=== PATIENT | female | born 1950 | race Caucasian/White ===

== ENCOUNTER → 2022-08-22 08:27 | Outpatient (BNVA) | payer MEDICARE, OTHER, SELFPAY | PROVIDERS: Family Provider Family Medicine; PCP Family Medicine; Referring Provider Family Medicine; Visit Provider Specialist | DX: G25.0 Essential tremor (principal); F17.210 Nicotine dependence, cigarettes, uncomplicated | CPT/HCPCS: 99204 ==

== ENCOUNTER → 2023-02-06 10:54 | Outpatient (BNVA) | payer MEDICARE, OTHER, SELFPAY | PROVIDERS: Family Provider Family Medicine; PCP Family Medicine; Visit Provider Specialist | DX: G25.0 Essential tremor (principal); F17.200 Nicotine dependence, unspecified, uncomplicated; Z53.21 Procedure and treatment not carried out due to patient leaving prior to being seen by health care provider | CPT/HCPCS: G0463 ==

== ENCOUNTER → 2023-08-15 09:45 | Outpatient (BNVA) | payer MEDICARE, OTHER, SELFPAY | PROVIDERS: Family Provider Family Medicine; PCP Family Medicine; Referring Provider Family Medicine; Visit Provider Internal Medicine Cardiovascular Disease | DX: R07.9 Chest pain, unspecified (principal); F17.200 Nicotine dependence, unspecified, uncomplicated; I44.4 Left anterior fascicular block; I10 Essential (primary) hypertension; G25.0 Essential tremor | CPT/HCPCS: 93005; 99204 ==

== ENCOUNTER 2023-08-30 10:32 | Outpatient (CLI) | payer MEDICARE, OTHER, SELFPAY ==
--- NOTE | 2023-08-30 11:15 | USCV_ITS ---
Karen Conley Age: 73 Gender: F : 1950 Exam Date: 08/30/2023 10:43 Ordering Phys: Sonya Lopez MD ([email or web address]) Technologist: Erika Schilling Exam Location: [facility] [place] Indication: HTN AND CHEST PAIN BP: 140 / 70 HR: 75 Rhythm: Sinus Technical Quality: Adequate MEASUREMENTS (Male / Female) Normal Values 2D ECHO LV Diastolic Diameter PLAX 4.0 cm 4.2 - 5.9 / 3.9 - 5.3 cm LV Systolic Diameter PLAX 3.0 cm LV Chamber Size 3.0 cm IVS Diastolic Thickness 1.4 cm 0.6 - 1.0 / 0.6 - 0.9 cm IVS Systolic Thickness 1.5 cm LVPW Diastolic Thickness 1.3 cm 0.6 - 1.0 / 0.6 - 0.9 cm LVPW Systolic Thickness 1.2 cm RV Chamber Size 2.6 cm LVOT Diameter 2.1 cm LV Ejection Fraction 2D Teich 51.6 % LV Ejection Fraction MOD 2C 72.1 % LV Ejection Fraction 2C AL 74.8 % LA Diameter 3.7 cm LA Width 3.3 cm LA Height 4.0 cm RA Width 2.5 cm RA Height 4.5 cm Aorta at Sinotubular Diameter 3.2 cm IVC Diameter 1.3 cm M-MODE Aortic Annulus Diameter 3.3 cm LA Ao Ratio MM 1.2 MV E Point Septal Separation 0.1 cm DOPPLER AV Peak Velocity 236.0 cm/s LVOT Peak Velocity 176.7 cm/s AV Area Cont Eq vti 2.5 cm squared AV Area Cont Eq pk 2.5 cm squared MV Area PHT 2.8 cm squared Mitral E to A Ratio 1.0 MV E' Velocity 47.6 cm/s Mitral E to MV E' Ratio 12.8 Mitral E to LV E' Lateral Ratio 12.1 Mitral E to LV E' Septal Ratio 13.6 TR Peak Velocity 220.1 cm/s TR Peak Gradient 19.4 mmHg TR Mean Velocity 175.1 cm/s TR Mean Gradient 13.4 mmHg TR Velocity Time Integral 67.5 cm TV Peak E Velocity 61.0 cm/s Right Atrial Pressure 3.0 mmHg Pulmonary Artery Systolic Pressu 22.4 mmHg RV Acceleration Time 0.4 s RV Ejection Time 0.1 s RV AcT/ET 3.3 FINDINGS Left Ventricle Normal left ventricular size, systolic function and wall thickness, with no regional wall motion abnormalities. Left ventricular ejection fraction is estimated at 65 %. Normal diastolic function. Right Ventricle Normal right ventricular size and systolic function. Right ventricular systolic pressure 22.4 mmHg. Right Atrium Normal right atrial size. Left Atrium Normal left atrial size. Mitral Valve Structurally normal mitral valve. No mitral valve stenosis. No mitral valve regurgitation. Aortic Valve Structurally normal trileaflet aortic valve. No aortic valve stenosis. Trace to mild aortic valve regurgitation. Tricuspid Valve Structurally normal tricuspid valve. No tricuspid valve stenosis. Trace tricuspid valve regurgitation. Pulmonic Valve Structurally normal pulmonic valve. No pulmonary valve stenosis. No pulmonary valve regurgitation. Pericardium No pericardial effusion. Aorta Normal size aortic root and proximal ascending aorta. IVC Normal IVC dimension with >50% respiratory change of the inferior vena cava. CONCLUSIONS 1. Normal left ventricular size, systolic function and wall thickness, with no regional wall motion abnormalities. Left ventricular ejection fraction is estimated at 65 %. Normal diastolic function. 2. Trace to mild aortic valve regurgitation. 3. No prior similar studies to compare. Sonya Lopez MD (Electronically Signed) Final Date: 30 August 2023 17:40 S
== END 2023-08-30 10:33 | disposition home or self-care (01) ==
LOC: RAD 10:32
PROVIDERS: Family Provider Family Medicine; PCP Family Medicine; Visit Provider Internal Medicine Cardiovascular Disease
DX: R07.9 Chest pain, unspecified (principal); I10 Essential (primary) hypertension; I35.1 Nonrheumatic aortic (valve) insufficiency
CPT/HCPCS: 93306

== ENCOUNTER 2024-02-07 12:41 | Emergency (ER) | payer MEDICARE, OTHER, SELFPAY ==
[2024-02-07] VITALS (37 sets, daily range): BP systolic 129–191; BP diastolic 73–126; PULSE 63–103; RESP 14–31; TEMP 36.7; O2SAT 87–99
--- NOTE | 2024-02-07 13:26 | ECG_ITS ---
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 Measurements Intervals [place] Rate: 78 P: 0 NM: 0 QRS: -30 QRSD: 130 T: 79 QT: 415 QTc: 473 Interpretive Statements Sinus rhythm with frequent supraventricular ectopics MINIMAL VOLTAGE CRITERIA FOR LVH, CONSIDER NORMAL VARIANT [MEETS CRITERIA IN ONE OF: R(aVL), S(V1), R(V5), R(V5/V6)+S(V1)] SEPTAL MYOCARDIAL INFARCTION , PROBABLY OLD [40+ ms Q WAVE IN V1/V2] LATERAL MYOCARDIAL INFARCTION , OF INDETERMINATE AGE [40+ ms Q WAVE AND/OR ST/T ABNORMALITY IN I/aVL/V5/V6] Compared to ECG 08/15/2023 09:50:10 Left anterior fascicular block no longer present Myocardial infarct finding still present Electronically Signed On 02-07-2024 18:34:02 CDT by Ivon Fong M.D. [id number]
--- NOTE | 2024-02-07 13:26 | XRR_ITS ---
PROCEDURE INFORMATION: Exam: XR Chest Exam date and time: 02/07/2024 1:30 PM Age: 74 years old Clinical indication: Dyspnea TECHNIQUE: Imaging protocol: Radiologic exam of the chest. Views: 1 view. COMPARISON: No relevant prior studies available. FINDINGS: Lungs: Unremarkable. No consolidation or mass. Pleural spaces: Unremarkable. No pleural effusion. No pneumothorax. Heart/Mediastinum: Unremarkable. No cardiomegaly. Bones/joints: Unremarkable. XR/XR chest 1V portable [id number] IMPRESSION: No acute findings.
--- NOTE | 2024-02-07 13:29 | ED_ITS ---
HPI - SOB/Dyspnea 2 General: Chief Complaint: Shortness of Breath/Dyspnea Stated Complaint: irregular hb, devika sent over Time Seen by Provider: 02/07/24 13:26 History of Present Illness: HPI Narrative: 74-year-old female presents emergency de partment from her primary care doctor's office stating that she has been having some intermittent shortness of breath worsening over the previous 6 days. She states she does have a history of atrial fibrillation and states that she also has a history of COPD and states she has decreased her cigarette usage and today is only smoked 4 cigarettes. She states she does have a nonproductive cough. She states she has not had any chest pain. She denies dizziness or lightheaded fever chills or night sweats. She states she feels like she is more short of breath with exertion. Review of Systems 2 General: Reports: 10 or more systems reviewed and unremarkable except in HPI and below Resp: Reports: dyspnea, non-productive cough and wheezing PFSH ED 2 PFSH: Medical History HTN (hypertension) Surgical History H/O: hysterectomy Family History Mother Cancer Father Dementia Diabetes Stroke Social History Smoking and tobacco/nicotine status: current every day tobacco/nicotine user cigarettes Packs smoked per day: 1 Alcohol intake: never Substance/Drug Use: never Physical Exam 2 Narrative: EXAM NARRATIVE: Constitutional: the patient appears well nourished and with normal development. Vital signs reviewed as documented. HENMT: Normocephalic, atraumatic. External ears normal appearance without drainage. Nose without drainage, normal appearance. Mucus membranes moist. Neck is supple, No jugular venous distension, trachea is midline, no appreciable carotid bruits. No lymphadenopathy. No meningeal signs. Flexion, extension and lateral rotation is without pain. Eyes: Pupils are equal, round, reactive to light and accommodation. No scleral icterus. Extra-ocular movement are intact. Thorax is symmetrical and with equal rise and fall with respirations. Resp: Prolonged expiratory phase, faint scattered expiratory wheezes noted. Decreased bilaterally in the bases most likely secondary to body habitus. She does not appear to be having increased work of breathing. Cardio: Irregularly irregular consistent with findings of atrial fibrillation which appears to be chronic for this patient.. Positive S1, S2. No appreciable murmurs, rubs or gallops. GI: Abdominal exam reveals normal bowel sounds to all quadrants. No organomegaly. No obvious palpable masses noted. No hepatomegally appreciated. Soft, non-tender to palpation. Extremity: Extremities are non-edematous and both femoral and pedal pulses are 2+ and equal bilaterally. Moves all extremities well, sensation in all extremities. Neuro: Alert and oriented x4, person, place, time and situation. Cranial nerves II through XII are grossly intact, there is no focal neurological deficits that I can appreciate at present. Sensation intact to all extremities. 2-point discrimination intact. Light touch intact to all extremities. Motor strength in the upper and lower extremities are equal and bilateral 5/5. Psych: Cooperative, calm, normal thought process, appropriate judgment. Skin: No lesions, rashes. No gross abnormalities noted. Back: Symmetrical, no obvious deformity, No CVA tenderness Course 2 Vital Signs: Vital signs: Vital Signs Temperature 98.1 F 02/07/24 12:50 Pulse Rate 73 02/07/24 16:30 Respiratory Rate 22 H 02/07/24 16:30 Blood Pressure 149/88 02/07/24 16:30 Pulse Oximetry 96 02/07/24 16:30 Oxygen Delivery Me thod Room Air 02/07/24 16:10 Oxygen Flow Rate 2 02/07/24 15:15 MDM - SOB/Dyspnea Medical Decision Making Physical exam completed and documented, I will obtain a CBC, CMP, cardiac enzymes as well as serial twelve-lead EKGs and a chest x-ray to evaluate. I suspect most likely this is a COPD exacerbation as she continues to use tobacco products. Differential diagnosis includes viral pneumonia, bacterial pneumonia, COPD exacerbation, CHF, worsening pulmonary function, uncontrolled atrial fibrillation. Medical Records I reviewed the patient's medical records. Lab Data I reviewed the patient's lab results. 02/07/24 13:47 02/07/24 13:47 Labs/Radiology: Radiology Impressions Chest X-Ray 02/07/24 13:26 IMPRESSION: No acute findings. Laboratory Results WBC 10.14 10^3/uL (3.29-11.43) 02/07/24 13:47 RBC 4.48 10^6/uL (3.85-5.65) 02/07/24 13:47 Hgb 13.80 g/dL (11.27-16.99) 02/07/24 13:47 Hct 40.1 % (36-47) 02/07/24 13:47 MCV 89.5 fl (85-98) 02/07/24 13:47 MCH 30.8 pg (27-33) 02/07/24 13:47 MCHC 34.4 g/dL (30-55) 02/07/24 13:47 RDW 13.1 % (12.1-15.1) 02/07/24 13:47 Plt Count 313 10^3/cmm (157-399) 02/07/24 13:47 MPV 8.9 fL (7.4-10.4) 02/07/24 13:47 Neut % (Auto) 56.2 % 02/07/24 13:47 Lymph % (Auto) 31.2 % 02/07/24 13:47 [place] % (Auto) 9.1 % 02/07/24 13:47 Eos % (Auto) 2.3 % 02/07/24 13:47 Baso % (Auto) 0.9 % 02/07/24 13:47 Neut # (Auto) 5.71 10^3/uL (1.8-7.7) 02/07/24 13:47 Lymph # (Auto) 3.2 10^3/uL (0.8-4.8) 02/07/24 13:47 [place] # (Auto) 0.9 10^3/uL (0.2-0.9) 02/07/24 13:47 Eos # (Auto) 0.2 10^3/uL (0.0-0.8) 02/07/24 13:47 Baso # (Auto) 0.1 10^3/uL (0.0-0.1) 02/07/24 13:47 Nucleated RBC % (auto) 0 % 02/07/24 13:47 Nucleated RBCs # 0.0 /100WBC 02/07/24 13:47 PT 12.70 SECONDS (12.1-14.9) 02/07/24 13:47 INR 0.93 (0.8-1.2) 02/07/24 13:47 Sodium 134 mmol/L (136-145) L 02/07/24 13:47 Potassium 2.6 mmol/L (3.5-5.1) L* 02/07/24 13:47 Chloride 92 mmol/L (98-107) L 02/07/24 13:47 Carbon Dioxide 29 mmol/L (22-29) 02/07/24 13:47 Anion Gap 15.6 (5-19) 02/07/24 13:47 BUN 24 mg/dL (8-23) H 02/07/24 13:47 Creatinine 0.9 mg/dL (0.5-0.9) 02/07/24 13:47 GFR Calculation Not Reportable 02/07/24 13:47 Glucose 111 mg/dL (65-115) 02/07/24 13:47 Calculated Osmolality 283 mOsm/kg (285-295) L 02/07/24 13:47 Calcium 8.7 mg/dL (8.5-10.5) 02/07/24 13:47 Total Bilirubin 0.3 mg/dL (0.15-1.2) 02/07/24 13:47 AST 26 U/L (0-32) 02/07/24 13:47 ALT 26 U/L (0-33) 02/07/24 13:47 Alkaline Phosphatase 53 U/L (35-105) 02/07/24 13:47 Troponin T Baseline 33 ng/L (0-10) H 02/07/24 13:47 Troponin T 120 Minute 25.90 ng/L (0-10) H 02/07/24 15:59 Delta Troponin T -7.10 ABS# (0-10) L 02/07/24 15:59 NT-Pro-B Natriuret Pep 777 pg/mL (0-450) H 02/07/24 13:47 Total Protein 7.0 g/dL (6.6-8.7) 02/07/24 13:47 Albumin 4.0 g/dL (3.5-5.2) 02/07/24 13:47 Globulin 3.0 g/dL (1.3-4.6) 02/07/24 13:47 Urine Color Yellow (Yellow) 02/07/24 15:45 Urine Appearance Hazy (CLEAR) A 02/07/24 15:45 Urine pH 5 (5-7) 02/07/24 15:45 Ur Specific [place] 1.010 (1.005-1.030) 02/07/24 15:45 Urine Protein Neg (Negative) 02/07/24 15:45 Urine Glucose (UA) Norm (Normal) 02/07/24 15:45 Urine Ketones Negative (Negative) 02/07/24 15:45 Urine Blood Neg (Negative) 02/07/24 15:45 Urine Nitrate Negative (Negative) 02/07/24 15:45 Urine Bilirubin Neg (Negative) 02/07/24 15:45 Urine Urobilinogen Norm mg/dL (Negative) 02/07/24 15:45 Ur Leukocyte Esterase Negative (Negative) 02/07/24 15:45 Urine RBC 0-4 /hpf (0-2) H 02/07/24 15:45 Urine WBC 0-4 /hpf (0-5) H 02/07/24 15:45 Ur Squamous Epith Cells 10-15 /hpf (0-5) H 02/07/24 15:45 Amorphous Sediment Not Reportable 02/07/24 15:45 Urine Bacteria Trace /hpf (NONE) 02/07/24 15:45 Hyaline Casts 5-10 /lpf H 02/07/24 15:45 Urine Mucus Trace /hpf 02/07/24 15:45 All radiology interpretation(s) finalized by discharge Discharge Plan Discharge Patient Disposition: Home Clinical Impression: Acute hypokalemia Atrial fibrillation Qualifiers: Atrial fibrillation type: longstanding persistent Qualified Code(s): I48.11 - Longstanding persistent atrial fibrillation Hypertension Qualifiers: Hypertension type: unspecified Qualified Code(s): I10 - Essential (primary) hypertension Condition: Stable Prescriptions: New potassium chloride 20 mEq tablet extended release 20 meq PO DAILY Qty: 7 0RF No Action hydrochlorothiazide 25 mg tablet 25 mg PO QAM clonidine HCl 0.3 mg tablet 0.3 mg PO BID furosemide [Lasix] 20 mg tablet 20 mg PO QAM losartan 100 mg tablet 100 mg PO QAM primidone 50 mg tablet 50 mg PO BID 90 Days Qty: 180 3RF diltiazem HCl [DILT-XR] 120 mg capsule,ext.rel 24h degradable 120 mg PO QAM multivitamin Tablet 1 tab PO DAILY Aspir-81 81 mg Tablet,Delayed Release (Dr/Ec) 162 mg PO BID garlic 500 mg Capsule 1,000 mg PO BID apple cider vinegar 500 mg Tablet 500 mg PO BID turmeric 400 mg Capsule 400 mg PO BID Discharge Orders: Discharge ED (Routine); Ordered 02/07/24 Ordered By: Wes Frias Referrals: Ricky Tijerina, DO [Primary Care Provider] - Discharge Diet: Usual diet Discharge Activity: Resume usual activity Patient Instructions: Opioid Safety, Pain Management Activity Restrictions/Additional Instructions: Activity Restrictions/Additional Instructions: Thank you for choosing [facility] for your healthcare needs today. Please realize that you were seen in the Emergency Department and that we are providing you with an emergency medical screening exam and this may not be a complete and all inclusive of all the testing and or medical work-up that you may need to determine your ailment or severity of your illness. It is very important that you follow-up as instructed with your Primary care provider or Specialist for additional evaluation and to discuss your medical treatment plan. Coding Level of Care Code ED Veterinary Livestock Inspector for Evan Ruiz
[2024-02-07] MEDS: ipratropium-albuterol 3 mL Neb INHALATION (13:53)
[2024-02-07 13:54] LABS: Basophils # 0.1 10^3/uL (0.0-0.1); Basophils % 0.9 %; Eosinophils # 0.2 10^3/uL (0.0-0.8); Eosinophils % 2.3 %; Hematocrit 40.1 % (36-47); Lymphocytes # 3.2 10^3/uL (0.8-4.8); Lymphocytes % 31.2 %; Mean Corpuscular HGB Conc 34.4 g/dL (30-55); Mean Corpuscular Hemoglobin 30.8 pg (27-33); Mean Corpuscular Volume 89.5 fl (85-98); Mean Platelet Volume 8.9 fL (7.4-10.4); Monocytes # 0.9 10^3/uL (0.2-0.9); Monocytes % 9.1 %; Neutrophils # 5.71 10^3/uL (1.8-7.7); Neutrophils % 56.2 %; Nucleated Red Blood Cells % 0 %; Platelet Count 313 10^3/cmm (157-399); Red Blood Count 4.48 10^6/uL (3.85-5.65); Red Cell Distribution Width 13.1 % (12.1-15.1); White Blood Count 10.14 10^3/uL (3.29-11.43)
[2024-02-07] MEDS: methylPREDNISolone sod succ 125 mg/2 mL INJ 60 MG IVP (13:57)
[2024-02-07 14:08] LABS: INR 0.93 (0.8-1.2)
[2024-02-07 14:13] LABS: Troponin(5th) Baseline 33 ng/L (0-10)
[2024-02-07 14:21] LABS: Alanine Aminotransferase 26 U/L (0-33); Alkaline Phosphatase 53 U/L (35-105); Anion Gap 15.6 (5-19); Aspartate Amino Transferase 26 U/L (0-32); Blood Urea Nitrogen 24 mg/dL (8-23); Calcium 8.7 mg/dL (8.5-10.5); Carbon Dioxide 29 mmol/L (22-29); Chloride 92 mmol/L (98-107); Creatinine Clr Calc Pharmacy 52.6851; Glucose 111 mg/dL (65-115); NT Pro B Type Natriuretic Pept 777 pg/mL (0-450); Osmolality Calculated 283 mOsm/kg (285-295); Sodium 134 mmol/L (136-145); Total Bilirubin 0.3 mg/dL (0.15-1.2)
[2024-02-07 14:27] LABS: Potassium 2.6 mmol/L (3.5-5.1)
[2024-02-07] MEDS: potassium chloride ER 20 mEq Tablet 40 MEQ PO (14:50)
[2024-02-07] MEDS: dilTIAZem 5 mg/mL SDV 5 mL 10 MG IVP (15:28)
--- NOTE | 2024-02-07 15:34 | ECG_ITS ---
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 Measurements Intervals [place] Rate: 86 P: 0 ND: 0 QRS: -22 QRSD: 131 T: 62 QT: 412 QTc: 495 Interpretive Statements ATRIAL FIBRILLATION WITH ABERRANT CONDUCTION OR VENTRICULAR PREMATURE COMPLEXES INTRAVENTRICULAR CONDUCTION DELAY [130+ ms QRS DURATION] MODERATE VOLTAGE CRITERIA FOR LVH, CONSIDER NORMAL VARIANT [MEETS CRITERIA IN ONE OF: R(aVL), S(V1), R(V5), R(V5/V6)+S(V1)] POSSIBLE SEPTAL MYOCARDIAL INFARCTION , PROBABLY OLD [30 ms Q WAVE IN V1/V2] Compared to ECG 02/07/2024 12:49:38 Ventricular premature complex(es) now present Aberrant conduction of supraventricular beat(s) now present Intraventricular conduction delay now present Myocardial infarct finding still present Electronically Signed On 02-07-2024 18:56:31 CDT by Ivon Fong M.D. [email or web address]
[2024-02-07 16:07] LABS: Add Urine Microscopic? YES; Bilirubin Urine Neg (Negative); Blood Urine Neg (Negative); Glucose Urine UA Norm (Normal); Ketones Urine Negative (Negative); Leukocyte Esterase Urine Negative (Negative); Nitrate Urine Negative (Negative); Protein Urine Neg (Negative); Urine Appearance Hazy (CLEAR); Urine Color Yellow (Yellow); Urobilinogen Urine Norm (Negative); pH Urine 5 (5-7)
[2024-02-07 16:12] LABS: Bacteria Urine TRACE /hpf; RBC Urine 0-4 /hpf (0-2); WBC Urine 0-4 /hpf (0-5)
[2024-02-07 16:13] LABS: Add Urine Culture? No; Mucus Urine TRACE /hpf
== END 2024-02-07 17:00 | disposition home or self-care (01) ==
PROVIDERS: Emergency Provider Internal Medicine; PCP Family Medicine
DX: E87.6 Hypokalemia (principal); I48.11 Longstanding persistent atrial fibrillation; I10 Essential (primary) hypertension; Z79.82 Long term (current) use of aspirin; F17.210 Nicotine dependence, cigarettes, uncomplicated
CPT/HCPCS: 36415; 71045; 80053; 81001; 83880; 84484; 85025; 85610; 93005; 94640; 96374; 96375; 99285; J2919; J3490

== ENCOUNTER → 2024-02-20 10:04 | Outpatient (BNVA) | payer MEDICARE, OTHER, SELFPAY | PROVIDERS: PCP Family Medicine; Visit Provider Nurse Practitioner Family | DX: I48.91 Unspecified atrial fibrillation (principal); I45.10 Unspecified right bundle-branch block; F17.200 Nicotine dependence, unspecified, uncomplicated; I49.3 Ventricular premature depolarization; I45.19 Other right bundle-branch block | CPT/HCPCS: 93005; 99214 ==